=== PATIENT | female | born 1970 | race African-American/Black ===

== ENCOUNTER 2022-07-09 10:47 | Emergency (ER) | payer SELFPAY ==
[2022-07-09 11:35] LABS: Urine Blood 2+ (Negative); Urine Glucose Negative (Negative); Urine Protein Negative (Negative)
[2022-07-09 11:39] LABS: Absolute Lymphocytes (CBC) 2.3 K/uL (0.7-4.9); Hematocrit 41.2 % (36.0-45.0); Lymphocytes % 27.9 % (15.3-44.8); MCV 84.6 fL (80-100); MPV 8.3 fL (7.6-11.3); RBC Red Blood Cell Count 4.87 M/uL (3.86-4.86)
[2022-07-09 12:21] LABS: Magnesium 2.3 mg/dL (1.8-2.4); Potassium 3.4 mmol/L (3.5-5.1); Thyroid Stimulating Hormone 0.518 uIU/mL (0.360-3.740)
--- NOTE | 2022-07-09 12:31 | ER ---
Nurse's Notes [facility] Name: Eve Wilder Age: 52 yrs Sex: Female : 1970 Arrival Date: 07/09/2022 Time: 10:49 Bed DIS2 Private MD: Diagnosis: Anxiety disorder, unspecified;Acute stress reaction Presentation: 07/09 11:04 Chief complaint: Patient states: I have been feeling shaky for the past two months. I bm7 can't eat and I can't sleep. Coronavirus screen: At this time, the client does not indicate any symptoms associated with coronavirus-19. Ebola Screen: No symptoms or risks identified at this time. Initial Sepsis Screen: Does the patient meet any 2 criteria? No. Patient's initial sepsis screen is negative. Does the patient have a suspected source of infection? No. Patient's initial sepsis screen is negative. Risk Assessment: Do you want to hurt yourself or someone else? Patient reports no desire to harm self or others. Onset of symptoms is unknown. 11:04 Method Of Arrival: Ambulatory [facility] 11:04 Acuity: NANCY 3 bm7 Triage Assessment: 11:05 General: Appears in no apparent distress. comfortable, Behavior is calm, cooperative, bm7 appropriate for age. Pain: Denies pain. EENT: No deficits noted. No signs and/or symptoms were reported regarding the EENT system. Neuro: No deficits noted. Cardiovascular: No deficits noted. Respiratory: No deficits noted. GI: No deficits noted. No signs and/or symptoms were reported involving the gastrointestinal system. : No deficits noted. No signs and/or symptoms were reported regarding the genitourinary system. Derm: No deficits noted. No signs and/or symptoms reported regarding the dermatologic system. Musculoskeletal: No deficits noted. No signs and/or symptoms reported regarding the musculoskeletal system. TRANSACTION COORDINATOR: 11:05 LMP N/A - Post-menopause bm7 Historical: - Allergies: 11:05 Flagyl; bm7 - Home Meds: 11:05 None [Active]; bm7 - PMHx: 11:05 None; bm7 - PSHx: 11:05 None; bm7 - Immunization history:: Adult Immunizations up to date, Client reports having NOT received the Covid vaccine. - Social history:: Smoking status: Patient denies any tobacco usage or history of. - Family history:: not pertinent. - Hospitalizations: : No recent hospitalization is reported. Screenin:48 Abuse screen: Denies threats or abuse. Denies injuries from another. Nutritional eh3 screening: No deficits noted. Tuberculosis screening: No symptoms or risk factors identified. Fall Risk None identified. Vital Signs: 11:04 BP 161 / 96; Pulse 100; Resp 16; Temp 98.5(TE); Pulse Ox 100% on R/A; Weight 80.74 kg bm7 (R); Height 5 ft. 6 in. (167.64 cm); Pain 0/10; 11:04 Body Mass Index 28.73 (80.74 kg, 167.64 cm) bm7 ED Course: 10:49 Patient arrived in ED. mr 11:05 Triage completed. bm7 11:05 Arm band placed on right wrist. bm7 11:10 Eliseo Martinez MD is Attending Physician. rn 11:26 Initial lab(s) drawn, by mt, sent to lab. Inserted saline lock: 22 gauge in right dh3 forearm, using aseptic technique. Blood collected. 12:37 Melody Amos, RN is Primary Nurse. iw 12:48 Patient has correct armband on for positive identification. eh3 12:48 No provider procedures requiring assistance completed. Patient did not have IV access eh3 during this emergency room visit. Administered Medications: No medications were administered Medication: 12:49 VIS not applicable for this client. eh3 Point of Care Testing: Blood Glucose: 11:09 Blood Glucose: 132 mg/dL; 7 Ranges: Outcome: 12:30 Discharge ordered by . rn 12:48 Discharged to home ambulatory. eh3 12:48 Condition: stable 12:48 Discharge instructions given to patient, Instructed on discharge instructions, follow up and referral plans. Demonstrated understanding of instructions, follow-up care. 12:49 Patient left the ED. 3 Signatures: Marlena Pinto mr Melody Amos, RN RN Eilseo Martinez MD MD rn Herrera, Deanna [facility] Kaylie Franklin RN RN [facility] Yazmin Otto RN RN 3
--- NOTE | 2022-07-09 12:31 | EDPHYS ---
Physician Documentation [facility] Name: Eve Wilder Age: 52 yrs Sex: Female : 1970 Arrival Date: 07/09/2022 Time: 10:49 Bed DIS2 Private MD: ED Physician Eliseo Martinez HPI: 07/09 11:48 This 52 yrs old Black Female presents to ER via Ambulatory with complaints of stress, rn anxiety, trouble sleeping. 11:48 Pt reports trouble sleeping, feels anxious, stressed for 1-4 months. Reports this began rn after "something bad happened to son". Reports feels more anxious at night when trying to go to sleep. No chest pain/sob/abd pain/vomiting/diarrhea/fever/blood in stool. Her provider recommended getting her thyroid checked and evaluated so came here. Currently feels fine.. Onset: The symptoms/episode began/occurred 1 month(s) ago. Severity of symptoms: At their worst the symptoms were moderate in the emergency department the symptoms have improved. The patient has experienced similar episodes in the past. The patient has been recently seen by a physician:. CALL CENTER NURSE: 11:05 LMP N/A - Post-menopause bm7 Historical: - Allergies: 11:05 Flagyl; bm7 - Home Meds: 11:05 None [Active]; bm7 - PMHx: 11:05 None; bm7 - PSHx: 11:05 None; bm7 - Immunization history:: Adult Immunizations up to date, Client reports having NOT received the Covid vaccine. - Social history:: Smoking status: Patient denies any tobacco usage or history of. - Family history:: not pertinent. - Hospitalizations: : No recent hospitalization is reported. ROS: 11:48 Constitutional: Negative for fever, chills, and weight loss, Eyes: Negative for injury, rn pain, redness, and discharge, Neck: Negative for injury, pain, and swelling, Cardiovascular: Negative for chest pain, palpitations, and edema, Respiratory: Negative for shortness of breath, cough, wheezing, and pleuritic chest pain, Abdomen/GI: Negative for abdominal pain, nausea, vomiting, diarrhea, and constipation, Back: Negative for injury and pain, MS/Extremity: Negative for injury and deformity, Skin: Negative for injury, rash, and discoloration, Neuro: Negative for headache, weakness, numbness, tingling, and seizure. Exam: 11:48 Constitutional: This is a well developed, well nourished patient who is awake, alert, rn and in no acute distress. Head/Face: Normocephalic, atraumatic. Eyes: Periorbital areas with no swelling, redness, or edema. Cardiovascular: Regular rate and rhythm. No pulse deficits. Respiratory: No increased work of breathing, no retractions or nasal flaring. Abdomen/GI: Soft, non-tender Skin: Warm, dry MS/ Extremity: Pulses equal, no cyanosis. Neuro: Awake and alert, GCS 15, oriented to person, place, time, and situation. Cranial nerves II-XII grossly intact. Motor strength 5/5 in all extremities. Sensory grossly intact. Cerebellar exam normal. Normal gait. Vital Signs: 11:04 BP 161 / 96; Pulse 100; Resp 16; Temp 98.5(TE); Pulse Ox 100% on R/A; Weight 80.74 kg bm7 (R); Height 5 ft. 6 in. (167.64 cm); Pain 0/10; 11:04 Body Mass Index 28.73 (80.74 kg, 167.64 cm) bm7 MDM: 11:10 Patient medically screened. rn 12:29 Differential Diagnosis anxiety, stress, hyperthyroid, dehydration, depression. Data rn reviewed: vital signs, nurses notes, lab test result(s), and as a result, I will discharge patient. Counseling: I had a detailed discussion with the patient and/or guardian regarding: the historical points, exam findings, and any diagnostic results supporting the discharge/admit diagnosis, lab results, the need for outpatient follow up, to return to the emergency department if symptoms worsen or persist or if there are any questions or concerns that arise at home. Special discussion: I discussed with the patient/guardian in detail that at this point there is no indication for admission to the hospital. It is understood, however, that if the symptoms persist or worsen the patient needs to return immediately for re-evaluation. 07/09 11:17 Order name: T4 Free rn 07/09 11:20 Order name: Glucose, Ancillary Testing; Complete Time: 12:28 EDMS 07/09 11:17 Order name: IV Start; Complete Time: 11:33 rn 07/09 11:36 Order name: Urine Dipstick-Ancillary; Complete Time: 12:28 EDNE 07/09 11:38 Order name: Basic Metabolic Panel; Complete Time: 12: EDMS 07/09 11:38 Order name: T4 Free; Complete Time: 12: EDMS 07/09 11:38 Order name: Magnesium; Complete Time: 12: EDMS 07/09 11:38 Order name: Thyroid Stimulating Hormone; Complete Time: 12: EDMS 07/09 11:39 Order name: CBC with Automated Diff; Complete Time: 12: EDMS Administered Medications: No medications were administered Point of Care Testing: Blood Glucose: 11: Blood Glucose: 132 mg/dL; bm7 Ranges: Critical Glucose Levels:Adult <50 mg/dl or >400 mg/dl <40 mg/dl or >180 mg/dl Disposition Summary: 07/09/22 12:30 Discharge Ordered Location: Home rn Problem: an ongoing problem rn Symptoms: have improved rn Condition: Stable rn Diagnosis - Anxiety disorder, unspecified rn - Acute stress reaction rn Followup: rn - With: Private Physician - When: As needed - Reason: Recheck today's complaints, Re-evaluation by your physician Discharge Instructions: - Discharge Summary Sheet rn - Stress, Adult rn - Generalized Anxiety Disorder, Adult rn - Form - Excuse from Work, School, or Physical Activity eh3 Forms: - Medication Reconciliation Form rn - Thank You Letter rn - Antibiotic furnace puncher - Prescription Opioid Use rn Signatures: Dispatcher [employer] [facility] Eliseo Martinez MD MD rn McCarthy, Brittany, RN RN bm7
[2022-07-10 23:29] VITALS: BP 161/96; TEMP 98.5; O2SAT 100
== END 2022-07-09 12:49 | disposition home or self-care (01) ==
LOC: ER 10:47
DX: F43.0 Acute stress reaction (principal); F41.9 Anxiety disorder, unspecified; Z88.8 Allergy status to other drugs, medicaments and biological substances
CPT/HCPCS: 36415; 80048; 81003; 82947; 83735; 84439; 84443; 85025; 99283

== ENCOUNTER 2024-02-08 15:32 | Emergency (ER) | payer BC ==
--- NOTE | 2024-02-08 16:25 | EDPHYS ---
Physician Documentation [facility] Name: Eve Wilder Age: 53 yrs Sex: Female : 1970 Arrival Date: 02/08/2024 Time: 15:32 Bed 13 Private MD: ED Physician Yonathan Peoples HPI: 02/07 16:20 This 53 yrs old Black Female presents to ER via Ambulatory with complaints of Abnormal sp3 EKG. 16:20 53-year-old female with history of anxiety and no other medical problems including sp3 cardiac history presents referred from the local PCP Dr. Dailey office by the nurse practitioner for "abnormal EKG". She was there to refill her anxiety medications and on the in office EKG the are read stated "consider acute STEMI" however the actual interpretation was not performed manually. Patient presents here with this history and without the actual EKG which we had to call and get faxed over later. Patient is having no chest pain, shortness of breath, jaw pain, left arm pain, epigastric pain, nausea, back pain, or any other anginal equivalents. Patient states that she "is not having a heart attack and wants to go home". Review systems otherwise negative.. Historical: - Allergies: 15:36 Flagyl; ll1 - Immunization history:: Adult Immunizations up to date. - Infectious Disease History:: Denies. - Social history:: Smoking status: Patient denies any tobacco usage or history of. ROS: 16:21 Constitutional: Negative for fever, chills, and weight loss, Eyes: Negative for injury, sp3 pain, redness, and discharge, ENT: Negative for injury, pain, and discharge, Neck: Negative for injury, pain, and swelling, Cardiovascular: Negative for chest pain, palpitations, and edema, Respiratory: Negative for shortness of breath, cough, wheezing, and pleuritic chest pain, Abdomen/GI: Negative for abdominal pain, nausea, vomiting, diarrhea, and constipation, Back: Negative for injury and pain, MS/Extremity: Negative for injury and deformity, Skin: Negative for injury, rash, and discoloration, Neuro: Negative for headache, weakness, numbness, tingling, and seizure, Psych: Negative for depression, anxiety, suicide ideation, homicidal ideation, and hallucinations, Allergy/Immunology: Negative for hives, rash, and allergies, Endocrine: Negative for neck swelling, polydipsia, polyuria, polyphagia, and marked weight changes, Hematologic/Lymphatic: Negative for swollen nodes, abnormal bleeding, and unusual bruising, 16:21 All other systems are negative, Exam: 16:22 Constitutional: This is a well developed, well nourished patient who is awake, alert, sp3 and in no acute distress. Head/Face: Normocephalic, atraumatic. Eyes: Pupils equal round and reactive to light, extra-ocular motions intact. Lids and lashes normal. Conjunctiva and sclera are non-icteric and not injected. Cornea within normal limits. Periorbital areas with no swelling, redness, or edema. ENT: Nares patent. No nasal discharge, no septal abnormalities noted. External auditory canals are clear. Oropharynx with no redness, swelling, or masses, exudates, or evidence of obstruction, uvula midline. Mucous membranes moist. Neck: Trachea midline, no thyromegaly or masses palpated, and no cervical lymphadenopathy. Supple, full range of motion without nuchal rigidity, or vertebral point tenderness. No Meningismus. Chest/axilla: Normal chest wall appearance and motion. Nontender with no deformity. No lesions are appreciated. Cardiovascular: Regular rate and rhythm with a normal S1 and S2. No gallops, murmurs, or rubs. Normal PMI, no JVD. No pulse deficits. Respiratory: Lungs have equal breath sounds bilaterally, clear to auscultation and percussion. No rales, rhonchi or wheezes noted. No increased work of breathing, no retractions or nasal flaring. Abdomen/GI: Soft, non-tender, with normal bowel sounds. No distension or tympany. No guarding or rebound. No evidence of tenderness throughout. Back: No spinal tenderness. No costovertebral tenderness. Full range of motion. Skin: Warm, dry with normal turgor. Normal color with no rashes, no lesions, and no evidence of cellulitis. MS/ Extremity: Pulses equal, no cyanosis. Neurovascular intact. Full, normal range of motion. Neuro: Awake and alert, GCS 15, oriented to person, place, time, and situation. Cranial nerves II-XII grossly intact. Motor strength 5/5 in all extremities. Sensory grossly intact. Cerebellar exam normal. Normal gait. 16:22 ECG was reviewed by the Attending Physician. EKG demonstrates normal sinus rhythm at 97 bpm with normal intervals, normal QRS, normal axis, normal axis ST segments without evidence of acute ischemia. Upon review of the in office EKG which was faxed over, there are no ST segment discrepancies and patient is not having an acute NM. The auto interpretation is believed to be incorrect. Vital Signs: 15:45 BP 154 / 79; Pulse 88; Resp 16; Pulse Ox 100% on R/A; iw 16:45 BP 148 / 85; Pulse 87; Resp 16; Pulse Ox 100% ; bp MDM: 15:36 Patient medically screened. sp3 16:23 Data reviewed: vital signs, nurses notes, EKG. ED course: Patient will be discharged sp3 home with anxiety management by PCP. Clinically have ruled out ACS or any other critical pathology at this time.. 02/07 15:49 Order name: EKG; Complete Time: 15:50 bp 02/07 15:49 Order name: EKG - Nurse/Tech; Complete Time: 15:50 bp Administered Medications: No medications were administered Disposition Summary: 02/08/24 16:24 Discharge Ordered Notes: Location: Home sp3 Condition: Stable sp3 Diagnosis - Anxiety disorder, unspecified sp3 Followup: sp3 - With: Private Physician - When: Upon discharge from the Emergency Department - Reason: Continuance of care Discharge Instructions: - Discharge Summary Sheet sp3 - Generalized Anxiety Disorder, Adult sp3 Forms: - Work release form iw - Medication Reconciliation Form sp3 - Antibiotic Education sp3 - Prescription Opioid Use sp3 - Patient Portal Instructions sp3 - Leadership Thank You Letter sp3 Signatures: Melody Amos, SEFERINO GENTILE iw Jonathon Chong RN RN bp Olga Bird, SEFERINO RN 1 Yonathan Peoples MD MD sp3
--- NOTE | 2024-02-08 16:25 | ER ---
Nurse's Notes [facility] Name: Eve Wilder Age: 53 yrs Sex: Female : 1970 Arrival Date: 02/08/2024 Time: 15:32 Bed 13 Private MD: Diagnosis: Anxiety disorder, unspecified Presentation: 02/07 15:45 Acuity: NANCY 3 iw 15:47 Chief complaint: Patient states: was sent from Dr. Dailey office for abnormal EKG, was iw being seen there for her anxiety, denies chest pain. Coronavirus screen: At this time, the client does not indicate any symptoms associated with coronavirus-19. Ebola Screen: Patient negative for fever greater than or equal to 101.5 degrees Fahrenheit, and additional compatible Ebola Virus Disease symptoms Patient denies exposure to infectious person. Patient denies travel to an Ebola-affected area in the 21 days before illness onset. No symptoms or risks identified at this time. Initial Sepsis Screen: Does the patient meet any 2 criteria? No. Patient's initial sepsis screen is negative. Does the patient have a suspected source of infection? No. Patient's initial sepsis screen is negative. Risk Assessment: Do you want to hurt yourself or someone else? Patient reports no desire to harm self or others. Onset of symptoms was February 08, 2024. 15:47 Method Of Arrival: Ambulatory iw Triage Assessment: 15:45 General: Appears in no apparent distress. Behavior is cooperative, appropriate for age, bp anxious. Pain: Denies pain. Cardiovascular: Rhythm is sinus rhythm. Historical: - Allergies: 15:36 Flagyl; ll1 - Immunization history:: Adult Immunizations up to date. - Infectious Disease History:: Denies. - Social history:: Smoking status: Patient denies any tobacco usage or history of. Screenin:45 [facility] ED Fall Risk Assessment (Adult) History of falling in the last 3 months, bp including since admission No falls in past 3 months (0 pts). Abuse screen: Denies threats or abuse. Denies injuries from another. Nutritional screening: No deficits noted. Tuberculosis screening: No symptoms or risk factors identified. Assessment: 15:45 General: SENT FROM CARDIOLOGY. Cardiovascular: Rhythm is sinus rhythm. bp 16:51 Reassessment: Patient states feeling better. bp Vital Signs: 15:45 BP 154 / 79; Pulse 88; Resp 16; Pulse Ox 100% on R/A; iw 16:45 BP 148 / 85; Pulse 87; Resp 16; Pulse Ox 100% ; bp ED Course: 15:33 Patient arrived in ED. mr 15:33 Yonathan Peoples MD is Attending Physician. sp3 15:36 Arm band placed on Patient placed in an exam room, on a stretcher. ll1 15:37 Jonathon Chong, RN is Primary Nurse. bp 15:45 Triage completed. iw 16:45 Patient has correct armband on for positive identification. bp 16:45 No provider procedures requiring assistance completed. Patient did not have IV access bp during this emergency room visit. Administered Medications: No medications were administered Medication: 16:45 VIS not applicable for this client. bp Outcome: 16:24 Discharge ordered by . sp3 16:45 Discharged to home ambulatory, with family, bp 16:45 Condition: stable 16:45 Discharge instructions given to patient, Instructed on discharge instructions, follow up and referral plans. Demonstrated understanding of instructions, follow-up care, 16:53 Patient left the ED. bp Signatures: Marlena Pinto, Reg Reg Melody Amos, RN RN iw Jonathon Chong, RN RN Olga Sanchez, RN RN ll1 Yonathan Peoples MD MD sp3
[2024-02-08 17:22] VITALS: BP 148/85; O2SAT 100
--- NOTE | 2024-02-09 16:43 | EKG ---
Test Date: 2024-02-08 Test Time: 15:39:44 Mobile Ui/Ux Designer: DIEGO MEASUREMENT RESULTS: Intervals: Rate: 97 [place]: 170 QRSD: 80 QT: 358 QTc: 454 [place]: P: 73 NJ: 170 QRS: 67 T: 71 INTERPRETIVE STATEMENTS: Normal sinus rhythm with sinus arrhythmia Normal ECG Compared to ECG 08/02/1998 10:20:00 No significant changes Electronically Signed On 02-09-24 16:41:44 CDT by Fercho Valladares
== END 2024-02-08 16:53 | disposition home or self-care (01) ==
LOC: ER 15:32
DX: F41.9 Anxiety disorder, unspecified (principal); Z88.1 Allergy status to other antibiotic agents
CPT/HCPCS: 93005